=== PATIENT | female | born 1975 | race American Indian/Alaskan Native ===

== ENCOUNTER 2017-03-24 23:41 | Emergency (ER) | payer MEDICAID, OTHER ==
[2017-03-25 00:06] VITALS: BP 129/87
== END 2017-03-25 04:35 | disposition left against medical advice (07) ==
LOC: ED 23:41
DX: M79.644 Pain in right finger(s) (principal); Z53.21 Procedure and treatment not carried out due to patient leaving prior to being seen by health care provider

== ENCOUNTER 2018-10-12 18:07 | Emergency (ER) | payer OTHER ==
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
--- NOTE | 2018-10-12 19:12 | XRay Report ---
PROCEDURE: XR SPINE LUMBOSACRAL 2-3V HISTORY: lower back pain FINDINGS: AP and lateral views of the lumbar spine were acquired as well as coned-down lateral view o f L5-S1. No fracture is seen in the lumbar spine. The intervertebral disc space heights appear preserved. IMPRESSION: No fracture is seen in the lumbar spine This document is electronically signed by Augusto Brock MD., October 12 2018 07:10:35 PM ET
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
[2018-10-12 20:32] VITALS: BP 127/86
== END 2018-10-12 20:35 | disposition home or self-care (01) ==
LOC: ED 18:07
DX: M54.5 Low back pain (principal); I10 Essential (primary) hypertension; K21.9 Gastro-esophageal reflux disease without esophagitis; G43.909 Migraine, unspecified, not intractable, without status migrainosus; Z98.890 Other specified postprocedural states; Z79.899 Other long term (current) drug therapy; V89.2XXA Person injured in unspecified motor-vehicle accident, traffic, initial encounter; Y93.89 Activity, other specified; Y92.488 Other paved roadways as the place of occurrence of the external cause; Y99.8 Other external cause status
CPT/HCPCS: 72100; 99283

== ENCOUNTER 2018-10-14 13:15 | Emergency (ER) | payer OTHER ==
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
[2018-10-14 13:29] VITALS: BP 137/87
--- NOTE | 2018-10-14 15:24 | XRay Report ---
LUMBOSACRAL SPINE, 3 VIEWS: History: Back pain Findings: The vertebral bodies, disk spaces and posterior elements are intact. No compression deformity or malalignment. The SI joints are symmetric and unremarkable. Impression: 1. No evidence for acute injury to the lumbar spine.
--- NOTE | 2018-10-14 15:25 | XRay Report ---
CERVICAL SPINE, 3 views: History: Neck pain. Findings: The vertebral bodies, disk spaces, posterior elements and prevertebral soft tissues are unremarkable. The dens is intact. No acute fracture or malalignment is identified. Impression: 1. No evidence for acute injury to the cervical spine.
[2018-10-14] MEDS ORDERED: IBUPROFEN PO ONE (18:09)
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
== END 2018-10-14 18:37 | disposition home or self-care (01) ==
LOC: ED 13:15
DX: S16.1XXA Strain of muscle, fascia and tendon at neck level, initial encounter (principal); S39.012A Strain of muscle, fascia and tendon of lower back, initial encounter; G44.209 Tension-type headache, unspecified, not intractable; I10 Essential (primary) hypertension; K21.9 Gastro-esophageal reflux disease without esophagitis; Z86.2 Personal history of diseases of the blood and blood-forming organs and certain disorders involving the immune mechanism; E66.9 Obesity, unspecified; Z68.41 Body mass index [BMI] 40.0-44.9, adult; Z79.1 Long term (current) use of non-steroidal anti-inflammatories (NSAID); V87.7XXA Person injured in collision between other specified motor vehicles (traffic), initial encounter; Y93.89 Activity, other specified; Y92.488 Other paved roadways as the place of occurrence of the external cause; Y99.8 Other external cause status
CPT/HCPCS: 72040; 72100; 99283